=== PATIENT | male | born 1960 | race Hispanic/Latino ===

== ENCOUNTER 2017-12-24 05:04 | Emergency (ER) | payer OTHER, BC ==
[~2017-12-24] VITALS: Ht 175.3 cm; Wt 88.5 kg
== END 2017-12-24 05:50 | disposition home or self-care (01) ==
LOC: ED 05:04
PROC: 2W3CX1Z Immobilization of Right Lower Arm using Splint (ICD-10-PCS; principal; 2017-12-24)
DX: S52.501A Unspecified fracture of the lower end of right radius, initial encounter for closed fracture (principal); W22.8XXA Striking against or struck by other objects, initial encounter
CPT/HCPCS: 29125; 73110; 99283

== ENCOUNTER 2018-10-23 15:32 | Emergency (ER) | payer OTHER, BC ==
[~2018-10-23] VITALS: Ht 175.3 cm; Wt 88.5 kg
[2018-10-23] MEDS ORDERED: TRAMADOL HCL50 MG PO (17:22)
== END 2018-10-23 17:35 | disposition home or self-care (01) ==
LOC: ED 15:32
DX: S40.012A Contusion of left shoulder, initial encounter (principal); S20.212A Contusion of left front wall of thorax, initial encounter; W01.198A Fall on same level from slipping, tripping and stumbling with subsequent striking against other object, initial encounter
CPT/HCPCS: 71101; 73030; 96372; 99283-25; J1885

== ENCOUNTER 2020-02-23 16:33 | Emergency (ER) | payer OTHER, BC ==
[~2020-02-23] VITALS: Ht 403.8 cm; Wt 85.3 kg
[~2020-02-23 16:33] MED LIST: ASPIRIN81 MG PO; CELEBREX200 MG PO; MULTIVITAMINS1 EACH PO; TRAMADOL HCL50 MG PO
[2020-02-23] MEDS ORDERED: METFORMIN HCL500 M1 PO (16:46)
[2020-02-25] MEDS ORDERED: ALEVE220 MG PO (16:03)
== END 2020-02-23 18:24 | disposition home or self-care (01) ==
LOC: ED 16:33
DX: S56.312A Strain of extensor or abductor muscles, fascia and tendons of left thumb at forearm level, initial encounter (principal); W19.XXXA Unspecified fall, initial encounter; Z87.891 Personal history of nicotine dependence; Z79.82 Long term (current) use of aspirin; Z79.84 Long term (current) use of oral hypoglycemic drugs; Z79.899 Other long term (current) drug therapy
CPT/HCPCS: 73130; 99283-25

== ENCOUNTER 2020-03-14 10:31 | Day surgery (SDC) | payer OTHER, BC ==
--- NOTE | 2020-03-03 07:47 | NUR ---
DORETHA CALLED DISASSEMBLER NURSE TO LET THEM KNOW OF POSITIVE COVID. THIS RN CALLED DR GOODMAN TO LET HIM KNOW WELL THE PT. UNABLE TO REACH PT, MESSAGE LEFT.
[~2020-03-14] VITALS: Ht 175.3 cm; Wt 86.0 kg
[~2020-03-14 10:31] MED LIST changes: +ALEVE220 MG PO; +METFORMIN HCL500 M1 PO
--- NOTE | 2020-03-14 11:00 | NUR ---
1035- PT ARRIVED TO THE UNIT AND PLACED IN RM 2. WARM BLANKETS AND WIPES WITH INSTRUCTIONS PROVIDED. 1100- PRE-OP CHECK IN COMPLETE. PT RESTING IN LOCKED AND LOWERED BED. CALL LIGHT WITHIN REACH. NO FURTHER REQUESTS AT THIS TIME.
[2020-03-14] MEDS ORDERED: HYDROCODON-ACE1 EA11 PO (12:49)
--- NOTE | 2020-03-14 13:24 | NUR ---
03/14/20 1324 Dora Davis 1305 PT ARRIVED IN PACU SLEEPY. BLOOD SUGAR 139 ON ARRIVAL. L ARM IN SLING. 1320 RESTING. REU.
--- NOTE | 2020-03-14 14:05 | NUR ---
CBG IS 173 IN DAY SURGERY POST OP. PT DENIES NAUSEA. REPORTS 5/10 LEFT SHOULDER PAIN. HE DESCRIBES THE PAIN NUMBNESS. REFUSES OFFER OF PRN MEDICATION FOR PAIN AT THIS POINT.
--- NOTE | 2020-03-14 15:00 | NUR ---
IN FOR HOURLY ASSESSMENT. WATER AND CRACKERS PROVIDED. PT RESTING IN LOCKED AND LOWERED BED, SIDE RAILS UP, CALL LIGHT WITHIN REACH. PT DENIES NEED FOR PAIN MEDICATION. NO FURTHER REQUESTS AT THIS TIME.
--- NOTE | 2020-03-14 15:39 | NUR ---
PT UP TO USE THE RESTROOM WITH STANDBY ASSIST. PT AMBULATES AND VOIDS WITH NO COMPLICATIONS. PT BACK TO LOCKED AND LOWERED BED, SIDE RAILS UP, CALL LIGHT WITHIN REACH. NO FURTHER REQUESTS AT THIS TIME.
--- NOTE | 2020-03-14 16:00 | NUR ---
PRINTED DISCHARGE INSTRUCTIONS GIVEN TO PT IN BOTH [facility] AND [place]. DISCHARGE INTRUCTIONS DISCUSSED WITH PT AND QUESTIONS ANSWERED. ASSISTED THE PT WITH DRESSING AND PLACING CRYO CUFF AND SLING.
--- NOTE | 2020-03-14 16:15 | NUR ---
PT LEFT THE UNIT VIA WHEELCHAIR. PT TRANSFERRED FROM WHEELCHAIR TO VEHICLE WITH NO COMPLICATAIONS. SON GALILEO PROVIDED TRANSPORTATION.
--- NOTE | 2020-03-15 08:06 | OR ---
[facility] [address], [place] [address] Signed DATE OF OPERATION: 03/14/2020 SURGEON: Diamond Bradley MD PREOPERATIVE DIAGNOSIS: Rotator cuff tear, left shoulder. POSTOPERATIVE DIAGNOSIS: Rotator cuff tear, left shoulder. PROCEDURE PERFORMED: Left shoulder arthroscopy with rotator cuff repair. ASSISTANTS: 1. Mirta Bellamy PA-C. Mirta was present and critical for all portions of procedure. 2. DANIELLE Valdovinos. ANESTHESIA: General. BLOOD LOSS: Minimal. IMPLANTS: One 4.75 SwiveLock. BRIEF HISTORY: Prakash is a 59-year-old gentleman, who developed rotator cuff tear in his shoulder. He was diagnosed with diabetes during the initial period and we had to get his blood sugar stabilized prior to surgery. Once he was cleared medically, he was scheduled for the surgery. Risks, benefits, and alternatives were discussed at length and he understood and wished to proceed. DESCRIPTION OF PROCEDURE: Once consent was obtained, he was taken to the operating room. After adequate anesthesia, he was placed in a beach chair position. All downside pressure points were well padded. Left shoulder was prepped and draped in a standard sterile fashion. The shoulder was injected with 15 mL 0.25% Marcaine with epinephrine as was subacromial space. The standard posterior portal was made and the scope was introduced in the Electronically Signed By: DIAMOND BRADLEY MD 03/15/20 0806 PATIENT NAME: PRAKASH ARRINGTON V OPERATIVE REPORT DATE OF : 58 REPORT #: [id number] PHYSICIAN: DIAMOND BRADLEY MD PCP: NO PRIMARY CARE PHYSICIAN REPORT IS CONFIDENTIAL AND NOT TO BE RELEASED WITHOUT AUTHORIZATION [facility] [address], [place] [address] Signed shoulder. ARTHROSCOPIC FINDINGS: The glenohumeral surfaces were intact. Biceps, biceps anchor, and labrum were intact. The rotator cuff was noted to be torn from the biceps tendon about 1 cm posteriorly. This did extend a little bit into the rotator cuff interval well. The cuff was retracted just a little bit. Subacromial space showed minimal thickening of the bursa. There was minimal synovitis in the shoulder itself. DESCRIPTION OF OPERATION: A standard anterior portal was made and the diagnostic arthroscopy was undertaken as noted above. The scope was withdrawn, placed in the subacromial portal. The subacromial space and the standard lateral portal were made. A passport cannula was placed. The cuff edge was debrided as was any overhanging scar tissue and bursitis. The margin of the cuff tear was then debrided down to a good healthy edge. A FiberTape suture was placed in an inverted mattress in the base of the tear. This was then mobilized and pulled forward until fit onto the tuberosity. Using a 4.75 anchor, the rotator cuff was then pulled down into position. There was excellent bleeding from the debrided tuberosity. We felt this was stable and no further sutures were needed. The suture ends were cut and the scope was withdrawn. Portals were closed with 3-0 nylon. Wounds were dressed with Acticoat dressing and he tolerated procedure well. All sponge, needle, and instrument counts were correct. Diamond Bradley MD BA/MODL /[id number] Copies: ~ Electronically Signed By: DIAMOND BRADLEY MD 03/15/20 0806 PATIENT NAME: PRAKASH ARRINGTON V OPERATIVE REPORT DATE OF : 58 REPORT #: [id number] PHYSICIAN: DIAMOND BRADLEY MD PCP: NO PRIMARY CARE PHYSICIAN REPORT IS CONFIDENTIAL AND NOT TO BE RELEASED WITHOUT AUTHORIZATION
== END 2020-03-14 16:15 | disposition home or self-care (01) ==
LOC: DS 10:31
PROVIDERS: ATTEND Specialist
PROC: 0LQ24ZZ Repair Left Shoulder Tendon, Percutaneous Endoscopic Approach (ICD-10-PCS; principal; 2020-03-14 11:30)
DX: S46.012A Strain of muscle(s) and tendon(s) of the rotator cuff of left shoulder, initial encounter (principal); M65.812 Other synovitis and tenosynovitis, left shoulder; U07.1 COVID-19; E11.9 Type 2 diabetes mellitus without complications; Z79.899 Other long term (current) drug therapy; Z79.84 Long term (current) use of oral hypoglycemic drugs; Z79.82 Long term (current) use of aspirin; W19.XXXA Unspecified fall, initial encounter
CPT/HCPCS: 01630; 64415; 76942; C1713; J0330; J0690; J0735; J1100; J1885; J2001; J2250; J2405; J2704; J2765; J3010; J7121

== ENCOUNTER 2020-03-15 21:09 | Emergency (ER) | payer OTHER, BC ==
[~2020-03-15] VITALS: Ht 175.3 cm; Wt 85.0 kg
[~2020-03-15 21:09] MED LIST changes: +HYDROCODON-ACE1 EA11 PO
--- OUTSIDE RECORDS SUMMARY | 2020-03-15 21:12 | XMS ---
PreManage Notification: ASHLEY ARRINGTON Security Scanning Coordinator Events No recent Security Events currently on file CRITERIA MET - [facility] - 2 Visits in 30 Days CARE PROVIDERS There are no care providers on record at this time. Anthony has no Care Guidelines for this patient. Francy VISIT COUNT (12 MO.) 2 [facility] [place] H. TOTAL 2 NOTE: Visits indicate total known visits. ED/C VISIT TRACKING (12 MO.) 03/15/2020 21:[address] [facility] [place] TYPE: Emergency COMPLAINT: - POST OP PROBLEM 02/23/2020 16:[address] [facility] [place] TYPE: Emergency COMPLAINT: - LEFT THUMB INJURY DIAGNOSES: - Unspecified fall, initial encounter - Strain of extensor or abductor muscles, fascia and tendons of left thumb at forearm level, initial encounter - Other skilled nursing (current) drug therapy - halfway (current) use of oral hypoglycemic drugs - halfway (current) use of aspirin - Personal history of nicotine dependence INPATIENT VISIT TRACKING (12 MO.) No inpatient visits to display in this time frame [email or web address]
--- NOTE | 2020-03-15 23:59 | EKG ---
[facility] [address] [facility] [place], [place] [address] Signed Normal sinus rhythm Normal ECG When compared with ECG of 25-FEB-2020 16:25, No significant change was found Confirmed by ALAN MALIK MD ([id number]) on 03/15/2020 11:58:52 PM Electronically Signed By: ALAN MALIK MD 03/15/20 2359 PATIENT NAME: ASHLEY ARRINGTON Laura Electrocardiogram DATE OF : 58 PHYSICIAN: ALAN MALIK MD REPORT #: [id number] REPORT IS CONFIDENTIAL AND NOT TO BE RELEASED WITHOUT AUTHORIZATION
== END 2020-03-15 23:54 | disposition home or self-care (01) ==
LOC: ED 21:09
DX: U07.1 COVID-19 (principal); E11.9 Type 2 diabetes mellitus without complications; Z79.84 Long term (current) use of oral hypoglycemic drugs; Z79.82 Long term (current) use of aspirin
CPT/HCPCS: 71045; 80053; 85025; 93005; 93010; 99284-25; C9803; U0003

== ENCOUNTER 2021-08-19 12:06 | Emergency (ER) | payer OTHER, BC ==
[~2021-08-19] VITALS: Ht 175.3 cm; Wt 84.5 kg
--- OUTSIDE RECORDS SUMMARY | 2021-08-19 12:14 | XMS ---
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 Anthony has no Care Guidelines for this patient. Francy VISIT COUNT (12 MO.) 2 [facility] [place] [facility]. TOTAL 2 NOTE: Visits indicate total known visits. ED/[facility] VISIT TRACKING (12 MO.) 08/19/2021 12:07 [facility] [place] TYPE: Emergency COMPLAINT: - LT FOOT INJURY 08/17/2021 21:04 [facility] [place] TYPE: Emergency COMPLAINT: - LEFT FOOT INJ, LWOB INPATIENT VISIT TRACKING (12 MO.) No inpatient visits to display in this time frame [id number]
[2021-08-19] MEDS ORDERED: ULTRAM50 MG PO (14:03)
[2021-08-19] MEDS ORDERED: MOBIC15 MG PO (14:03)
== END 2021-08-19 14:25 | disposition home or self-care (01) ==
LOC: ED 12:06
DX: M77.8 Other enthesopathies, not elsewhere classified (principal); E11.9 Type 2 diabetes mellitus without complications; Z79.84 Long term (current) use of oral hypoglycemic drugs; Z79.82 Long term (current) use of aspirin; Z79.899 Other long term (current) drug therapy
CPT/HCPCS: 73630; 99283-25